=== PATIENT | male | born 1935 | race Caucasian/White ===

== ENCOUNTER 2021-02-08 09:03 | Day surgery (SDC) | payer MEDICARE ==
[~2021-02-08] VITALS: Ht 180.3 cm; Wt 72.4 kg
[2021-02-08] VITALS (11 sets, daily range): BP systolic 114–149; BP diastolic 67–93; PULSE 54–103; TEMP 97.5–98
[2021-02-08] MEDS ORDERED: VITAMIND3 5000 PO (09:19)
[2021-02-08] MEDS ORDERED: NATURE'S BLEND100 M2 PO (09:20)
[2021-02-08] MEDS ORDERED: B-121000 MCG PO (09:21)
[2021-02-08] MEDS ORDERED: VITAMIN C500 MG PO (09:21)
[2021-02-08] MEDS ORDERED: PHARMASSURE ZIN50 MG PO (09:22)
[2021-02-08] MEDS ORDERED: ASPIRIN E.C. 8181 MG PO (09:22)
[2021-02-08] MEDS ORDERED: ZESTRIL 5MG5 MG PO (09:22)
[2021-02-08] MEDS ORDERED: FLOMAX 0.40.4 MG/CAP PO (09:23)
[2021-02-08] MEDS ORDERED: PROSCAR 5MG5 MG PO (09:24)
[2021-02-08] MEDS ORDERED: CLARITIN 1010 MG/TAB PO (09:25)
[2021-02-08] MEDS ORDERED: ATARAX50 MG PO (09:25)
[2021-02-08] MEDS ORDERED: SENOKOT8.6 MG PO (09:26)
[2021-02-08] MEDS ORDERED: PRAVACHOL 40MG40 MG PO (09:26)
[2021-02-08 09:46] LABS: HEMATOCRIT 37.6 % (42.0-52.0); HEMOGLOBIN 12.1 g/dl (13.5-18.0); MEAN CELL VOLUME 93 fl (80.0-100.0); MEAN CORPUSCULAR HEMOGLOBIN 30 pg (27.0-31.0); MEAN CORPUSCULAR HGB CONC 32 g/dl (33.0-37.0); PLATELET COUNT 180 K/mm3 (130-400); RED BLOOD COUNT 4.05 M/mm3 (4.20-5.60); REDCELL DISTRIBUTION WIDTH-CV 13.8 % (11.5-14.5)
[2021-02-08 09:55] LABS: INR 1.1 (0.8-3.0); PROTHROMBIN TIME 12.1 SECONDS (9.7-12.8)
[2021-02-08 09:56] LABS: CALCIUM 8.9 mg/dL (8.4-10.2); CREATININE, serum 0.99 (0.66-1.25); POTASSIUM 4.1 mmol/L (3.4-5.0)
--- NOTE | 2021-02-08 14:25 | NUR ---
PATIENT TRANSFERED FROM [facility], ALERT & ORIETNTED X3. VSS. PATIENT DENIES ANY PAIN, NO COMPLAINTS OF N/V AT THIS TIME. LEFT CHEST DRESSING ASSESSED, GAUZE IS CLEAN, DRY AND INTACT. HEAD TO TOE ASSESSMENT COMPLETE. LUNG SOUNDS CLEAR IN ALL FILEDS, HEART SOUNDS NORMAL, BOWEL SOUNDS AUDIBLE. ABDOMINAL AORTA IS PALPABLE AND NOTED. RADIAL, PEDAL AND POST TIBIAL PULSES ARE EQUAL. NO EDEMA NOTED. PATIENT IS EDUCATED ABOUT KEEPING ARM IN SLING TO NOT DISLOCATE THE PACEMAKER LEADS. PATIENT VERBALIZES UNDERSTANDING OF TEACHING. BED LEFT IN THE LOWEST POSITION AND CALL LIGHT WITHIN REACH.
--- NOTE | 2021-02-08 20:00 | NUR ---
Assessment complete. Patient is alert and oriented but forgettful. He has no complaitnts of pain, no edema. Left chest pacemaker site has CDI dressing; HR is normal/regular. Patient's left arm remains in sling and education is provided about ROM restrictions. Call light in reach, bed alarm set.
[2021-02-09 03:58] VITALS: BP 112/67; PULSE 89; TEMP 97.7
--- NOTE | 2021-02-09 05:53 | NUR ---
Left chest pacemaker insertion site has developed an area of blood on dressing, about the size of a quarter. Underneath the dressing is observed and the incision does not appear to be actively bleeding. However, this area of blood was not present at the beginning of shift. Pacemaker interrogation is performed, sling is readjusted, dressing is changed (bloody dressing left on counter for physician reference) and ice pack applied. Patient still has no complaints of pain in this area. Will continue to monitor.
[2021-02-09 06:44] LABS: BASO % 0.4 % (0.0-2.0); EOS # 0.3 (0.0-0.7); EOS % 3.7 % (0-4.0); GRAN # 4.4 (1.4-6.5); HEMOGLOBIN 11.6 g/dl (13.5-18.0); LYMPH # 2.8 (1.2-3.4); LYMPH % 32.7 % (20.0-51.0); MEAN CELL VOLUME 91 fl (80.0-100.0); MEAN CORPUSCULAR HEMOGLOBIN 29 pg (27.0-31.0); MEAN CORPUSCULAR HGB CONC 32 g/dl (33.0-37.0); MEAN PLATELET VOLUME 10.5 fl (7.4-10.4); MONO # 0.9 (0.1-0.6); MONO % 10.6 % (1.7-9.3); PLATELET COUNT 186 K/mm3 (130-400); RED BLOOD COUNT 3.97 M/mm3 (4.20-5.60); REDCELL DISTRIBUTION WIDTH-CV 13.6 % (11.5-14.5)
[2021-02-09 06:54] VITALS: BP 115/78; PULSE 83; TEMP 98
[2021-02-09 06:54] LABS: ALBUMIN 3.5 gm/dL (3.5-5.0); BILIRUBIN,TOTAL 0.9 mg/dL (0.0-1.0); CALCIUM 8.9 mg/dL (8.4-10.2); POTASSIUM 4.1 mmol/L (3.4-5.0); TOTAL PROTEIN 6.6 gm/dL (6.4-8.2)
--- NOTE | 2021-02-09 09:30 | NUR ---
Patient resting in bed at this time. Patient is alert and oriented while awake. Denies pain in chest, shoulder, arm. Dressing to incision site is CDI, no indication of further bleeding. Sling adjusted. Patient denies further needs at this time, call light within reach.
[2021-02-09] MEDS ORDERED: CEPHALEXIN500 M1 PO (11:12)
[2021-02-09 11:35] VITALS: BP 115/73; PULSE 90; TEMP 97.7
--- NOTE | 2021-02-09 12:00 | NUR ---
First visit from the colorist photography. No needs right now.
--- NOTE | 2021-02-09 14:40 | NUR ---
Discharge teaching completed with patient, patient's , and daughter in law upon patient's 's request. Discussed post pacemaker placement instructions, stressed importance of not raising left arm over head and wearing sling at all times. Discussed showering, dressing incision. Instructed to call cardiology with questions or concerns. INT removed, catheter intact, hemostasis achieved. Upon being escorted to patient entrance, questions about discharge instructions answered for son.
== END 2021-02-09 14:40 | disposition home or self-care (01) ==
LOC: COL.CAR 09:03 → MEDICAL 09:03 → COL.CAR 10:30 → MEDICAL 14:49 → COL.CAR 02-09 14:40
PROVIDERS: Internal Medicine Cardiovascular Disease
DX: I44.2 Atrioventricular block, complete (principal); I49.5 Sick sinus syndrome; I25.10 Atherosclerotic heart disease of native coronary artery without angina pectoris; I10 Essential (primary) hypertension; K21.9 Gastro-esophageal reflux disease without esophagitis; E78.5 Hyperlipidemia, unspecified; M19.90 Unspecified osteoarthritis, unspecified site; F10.20 Alcohol dependence, uncomplicated; Z20.822 Contact with and (suspected) exposure to COVID-19; Z90.89 Acquired absence of other organs; Z95.1 Presence of aortocoronary bypass graft; Z79.82 Long term (current) use of aspirin; Z79.899 Other long term (current) drug therapy; Z87.891 Personal history of nicotine dependence; Z80.9 Family history of malignant neoplasm, unspecified
CPT/HCPCS: OP; C1769; C1785; C1894; C1898; J0690; J2250; J3010; J7030